=== PATIENT | male | born 1960 | race Caucasian/White ===

== ENCOUNTER 2017-06-10 16:53 | Emergency (ER) | payer OTHER ==
[~2017-06-10 16:53] MED LIST: Iopamidol 370 76% 100 ML VIAL ONE
[2017-06-10] MEDS ORDERED: Lidocaine Viscous Sol 2% 15 ml UD Cup ONE (17:53)
[2017-06-10 19:12] LABS: #Eosinphils 0.4 thou/uL (0.0-0.7); #Lymphocytes 2.2 thou/uL (1.20-3.40); #Monocytes 1.3 thou/uL (0.11-0.59); %Basophils 0.1 % (0.0-1.0); %Lymphocytes 18.7 % (21.0-51.0); %Monocytes 11.1 % (0.0-10.0); %Neutrophils 67.1 % (42.0-75.0); Hemoglobin 14.7 g/dL (14.0-18.0); Mean Corpuscular HGB CONC 33.1 g/dL (32.0-36.0); Mean Corpuscular Hemoglobin 28.4 pg (27.0-31.0); Mean Corpuscular Volume 85.9 fl (80.0-94.0); Mean Platelet Volume 8.4 fL (7.4-10.4); Platelet Count 222 thou/uL (130-400); RBC Distribution Width 12.6 % (11.5-14.5); Red Blood Cell (RBC) Count 5.16 mill/uL (4.70-6.10)
--- NOTE | 2017-06-10 19:13 | CT ---
CT OF THE ABDOMEN AND PELVIS WITH IV CONTRAST: 06/10/17 INDICATION: Severe rectal pain. FINDINGS: There is some subsegmental atelectasis involving both lower lobes. There is a tiny hypodensity within the medial left hepatic lobe measuring 8 mm. It is difficult to ch aracterize due to its size. There is mild fatty infiltration of the liver. The pancreas is unremarkab le. There is a 2.7 cm nodule involving the left adrenal gland. There is a small hypodensity measuring 1.6 cm that cannot be definitively characterized on the current exam involving the right mid kidney. There is a 2.7 cm hypodense mass seen posterior to the rectum with mild peripheral enhancement suspic ious for a perirectal abscess. The unopacified small and large bowel appear within normal limits. There is a normal appendix in the right lower quadrant of the abdomen. There are multiple phleboliths within the lower pelvis. No definite acute osseous abnormality is evident. IMPRESSION: 1. Hypodense peripherally enhancing collection seen posterior to the rectum suspicious for a per irectal abscess. Recommend GI consultation. 2. Left adrenal nodule incompletely characterized on the current exam. Followup CT of the abdome n utilizing adrenal mass protocol is recommended. 3. Left hepatic lobe and right renal hypodensity is difficult to characterize. These could be ch aracterized potentially better on the recommended CT of the abdomen with and without contrast as abov e. 4. Fat containing umbilical hernia. 5. Mild fatty infiltration of the liver. POS: [facility]
[2017-06-10 19:32] LABS: ALT (SGPT) 27 U/L (8-55); AST (SGOT) 16 U/L (5-34); Albumin 3.9 g/dL (3.5-5.0); Alkaline Phosphatase 95 U/L (40-150); Anion Gap 9 mmol/L (10-20); BUN (Urea Nitrogen) 16 mg/dL (8.4-25.7); Bilirubin, Total 0.2 mg/dL (0.2-1.2); CRP (Inflammatory) 6.27 mg/dL (= or < 0.5); Calc. Creatinine Clearance 0 mL/min (70-130); Calcium 9.1 mg/dL (7.8-10.44); Carbon Dioxide 25 mmol/L (22-29); Chloride 104 mmol/L (98-107); Estimated GFR-MDRD Greater than 90; Globulin 2.9 g/dL (2.4-3.5); Glucose 116 mg/dL (70-105); Protein, Total 6.8 g/dL (6.0-8.3); Sodium 134 mmol/L (136-145)
[2017-06-10] MEDS ORDERED: Ondansetron HCl/PF 4 MG/2 ML Vial ONE (20:45)
[2017-06-10] MEDS ORDERED: Morphine 4 MG/ML VIAL ONE (20:45)
[2017-06-10] MEDS ORDERED: Clindamycin/D5W 600 mg/50 ml Premix Bag ONE (22:09)
== END 2017-06-10 23:51 | disposition home or self-care (01) ==
LOC: ERS 16:53
DX: K61.1 Rectal abscess (principal); I10 Essential (primary) hypertension; F17.210 Nicotine dependence, cigarettes, uncomplicated
CPT/HCPCS: 36415; 45005; 74177; 80053; 85025; 85652; 86140; 87070; 87205; J2270; J2405; J3490

== ENCOUNTER 2019-10-05 07:22 | Emergency (ER) | payer SELFPAY ==
[2019-10-05] MEDS ORDERED: Clopidogrel Bisulfate 300 MG TAB ONE (07:40)
--- NOTE | 2019-10-05 07:48 | RAD ---
EXAM: Single view of the chest HISTORY: Chest pain COMPARISON: None FINDINGS: Single view of the chest shows a normal sized cardiomediastinal silhouette. There is no boris dence of consolidation, mass, or pleural effusion. The bones are unremarkable IMPRESSION: No evidence of acute cardiopulmonary disease
[2019-10-05 08:27] LABS: #Basophils 0.1 thou/uL (0.0-0.2); #Eosinphils 0.4 thou/uL (0.0-0.7); #Lymphocytes 2.8 thou/uL (1.20-3.40); #Monocytes 0.6 thou/uL (0.11-0.59); #Neutrophils 4.2 thou/uL (1.40-6.50); %Eosinophils 5.3 % (0.0-10.0); %Lymphocytes 34.7 % (21.0-51.0); %Monocytes 7.5 % (0.0-10.0); %Neutrophils 51.5 % (42.0-75.0); Hemoglobin 16.4 g/dL (14.0-18.0); Mean Corpuscular Hemoglobin 27.9 pg (27.0-31.0); Mean Corpuscular Volume 87.1 fL (78.0-98.0); Mean Platelet Volume 10.3 fL (7.4-10.4); Platelet Count 212 thou/uL (130-400); RBC Distribution Width 12.5 % (11.5-14.5); Red Blood Cell (RBC) Count 5.88 mill/uL (4.70-6.10); White Blood Cell (WBC) Count 8.1 thou/uL (4.8-10.8)
[2019-10-05 08:51] LABS: ALT (SGPT) 26 U/L (8-55); AST (SGOT) 21 U/L (5-34); Albumin 4.1 g/dL (3.5-5.0); Alkaline Phosphatase 101 U/L (40-110); Anion Gap 18 mmol/L (10-20); BUN (Urea Nitrogen) 8 mg/dL (8.4-25.7); Bilirubin, Total 0.5 mg/dL (0.2-1.2); Calc. Creatinine Clearance 0 mL/min (70-130); Carbon Dioxide 21 mmol/L (22-29); Chloride 103 mmol/L (98-107); Estimated GFR-MDRD Greater than 90; Globulin 2.9 g/dL (2.4-3.5); Glucose 107 mg/dL (70-105); Potassium 3.7 mmol/L (3.5-5.1); Sodium 138 mmol/L (136-145)
== END 2019-10-05 09:15 | disposition home or self-care (01) ==
LOC: ERS 07:22
DX: R07.89 Other chest pain (principal); R20.8 Other disturbances of skin sensation; F17.210 Nicotine dependence, cigarettes, uncomplicated; I10 Essential (primary) hypertension
CPT/HCPCS: 71045; 80053; 83880; 84484; 85025; 93005

== ENCOUNTER 2022-03-28 20:06 | Inpatient (IN) | payer OTHER ==
[~2022-03-28 20:06] MED LIST changes: -Iopamidol 370 76% 100 ML VIAL ONE; +Iopamidol-370 76% 500 ML 1 ML ONE
[2022-03-28 20:41] LABS: #Eosinphils 0.4 thou/uL (0.0-0.7); #Lymphocytes 2.4 thou/uL (1.20-3.40); #Monocytes 0.7 thou/uL (0.11-0.59); #Neutrophils 5.9 thou/uL (1.40-6.50); %Basophils 0.3 % (0.0-1.0); %Eosinophils 4.2 % (0.0-10.0); %Lymphocytes 25.4 % (21.0-51.0); %Monocytes 7.3 % (0.0-10.0); %Neutrophils 62.8 % (42.0-75.0); Hemoglobin 15.9 g/dL (14.0-18.0); Mean Corpuscular HGB CONC 33.6 g/dL (32.0-36.0); Mean Corpuscular Hemoglobin 28.8 pg (27.0-31.0); Mean Corpuscular Volume 85.7 fl (78.0-98.0); Mean Platelet Volume 9.8 fL (7.4-10.4); Platelet Count 189 10x3/uL (130-400); RBC Distribution Width 12.3 % (11.5-14.5); White Blood Cell (WBC) Count 9.4 10x3/uL (4.8-10.8)
[2022-03-28 21:01] LABS: ALT (SGPT) 36 U/L (8-55); AST (SGOT) 41 U/L (5-34); Albumin 3.9 g/dL (3.4-4.8); Alkaline Phosphatase 82 U/L (40-110); Anion Gap 11 mmol/L (10-20); BUN (Urea Nitrogen) 15 mg/dL (8.4-25.7); Bilirubin, Total 0.3 mg/dL (0.2-1.2); Calc. Creatinine Clearance 0 mL/min (70-130); Calcium 8.8 mg/dL (7.8-10.44); Carbon Dioxide 21 mmol/L (23-31); Chloride 104 mmol/L (98-107); Estimated GFR 91; Globulin 2.7 g/dL (2.4-3.5); Potassium 4.3 mmol/L (3.5-5.1); Protein, Total 6.6 g/dL (5.8-8.1); Sodium 132 mmol/L (136-145)
[2022-03-28 21:18] LABS: Glucose 427 mg/dL (80-115)
[2022-03-28] MEDS ORDERED: Morphine 4 MG/ML VIAL ONE (22:13)
[2022-03-28] MEDS ORDERED: Ketorolac Tromethamine 30 MG/ML VIAL ONE (23:44)
[2022-03-29] MEDS ORDERED: Morphine 4 MG/ML VIAL ONE (02:10)
[2022-03-29] MEDS ORDERED: Ondansetron PF 4 MG/2 ML Vial ONE (02:12)
[2022-03-29] MEDS ORDERED: Morphine 4 MG/ML VIAL SLOW IVP PRN ×2 (02:16→07:42)
[2022-03-29] MEDS ORDERED: Acetaminophen 325 MG TAB PO PRN (02:30)
[2022-03-29] MEDS ORDERED: Sodium Chloride 0.9% 1,000 ML IV SCH ×2 (02:30→03:01)
[2022-03-29] MEDS ORDERED: Ondansetron PF 4 MG/2 ML Vial IVP PRN ×2 (02:30→03:02)
[2022-03-29] MEDS ORDERED: Ondansetron ODT 4 MG TAB SL PRN (02:30)
[2022-03-29] MEDS ORDERED: Dextrose 50% Abboject 50 ML SYRINGE SLOW IVP PRN (03:02)
[2022-03-29] MEDS ORDERED: Ipratropium/Albuterol 3 ML NEB NEB PRN (03:02)
[2022-03-29] MEDS ORDERED: Ondansetron ODT 4 MG TAB PO PRN (03:02)
[2022-03-29] MEDS ORDERED: Dextrose 5% in Water 1,000 ML IV PRN (03:02)
[2022-03-29] MEDS ORDERED: hydrALAZINE 20 MG/ML VIAL SLOW IVP PRN (03:02)
[2022-03-29] MEDS ORDERED: Insulin Regular 300 UNITS/3 ML VIAL SC PRN ×2 (03:04)
[2022-03-29] MEDS ORDERED: Cyclobenzaprine 10 MG TAB PO PRN (03:05)
[2022-03-29] MEDS ORDERED: Acetaminophen 500 MG TAB ONE (03:36)
[2022-03-29] MEDS ORDERED: traMADol HCl 50 MG TAB ONE ×2 (03:36)
[2022-03-29 04:44] VITALS: BMI 33.6
[2022-03-29] MEDS: traMADol HCl 50 MG TAB PO SCH ×2 (05:02→12:11)
[2022-03-29] MEDS: Acetaminophen 500 MG TAB PO SCH ×2 (05:02→12:11)
[2022-03-29 05:55] LABS: #Eosinphils 0.3 thou/uL (0.0-0.7); #Lymphocytes 2.2 thou/uL (1.20-3.40); #Monocytes 0.8 thou/uL (0.11-0.59); #Neutrophils 5.6 thou/uL (1.40-6.50); %Basophils 0.5 % (0.0-1.0); %Lymphocytes 24.9 % (21.0-51.0); %Neutrophils 62.6 % (42.0-75.0); Hemoglobin 14.7 g/dL (14.0-18.0); Mean Corpuscular HGB CONC 33.1 g/dL (32.0-36.0); Mean Corpuscular Volume 87.6 fl (78.0-98.0); Mean Platelet Volume 9.5 fL (7.4-10.4); Platelet Count 177 10x3/uL (130-400); RBC Distribution Width 12.3 % (11.5-14.5); Red Blood Cell (RBC) Count 5.07 mill/uL (4.70-6.10); White Blood Cell (WBC) Count 8.9 10x3/uL (4.8-10.8)
[2022-03-29] MEDS ORDERED: Gabapentin 300 MG CAP PO SCH (06:00)
[2022-03-29] MEDS ORDERED: Ketorolac Tromethamine 30 MG/ML VIAL IVP SCH ×2 (06:00→12:00)
[2022-03-29 06:08] LABS: Hemoglobin A1c 10.4 % (4.0-6.0)
[2022-03-29 06:18] LABS: Anion Gap 12 mmol/L (10-20); BUN (Urea Nitrogen) 12 mg/dL (8.4-25.7); Calc. Creatinine Clearance 169 mL/min (70-130); Calcium 8.4 mg/dL (7.8-10.44); Carbon Dioxide 22 mmol/L (23-31); Chloride 105 mmol/L (98-107); Estimated GFR 104; Glucose 247 mg/dL (80-115); Potassium 3.8 mmol/L (3.5-5.1); Sodium 135 mmol/L (136-145)
[2022-03-29] MEDS: Ipratropium/Albuterol 3 ML NEB NEB SCH ×2 (06:49→13:11)
[2022-03-29 06:51] LABS: SARS-CoV-2 NAA Rapid Test Not Detected (NotDetected)
[2022-03-29] MEDS ORDERED: Ibuprofen 800 MG TAB PO PRN (08:47)
[2022-03-29] MEDS ORDERED: Ibuprofen 200 MG TAB PO PRN (09:00)
[2022-03-29] MEDS ORDERED: Famotidine 20 MG TAB PO SCH (09:00)
[2022-03-29] MEDS ORDERED: Senokot S 8.6-50 MG TAB PO SCH (09:00)
[2022-03-29] MEDS ORDERED: Polyethylene Glycol 3350 17 GM Packet PO SCH (09:00)
[2022-03-29 12:20] VITALS: BP 132/85; TEMP 97.6
[2022-03-29] MEDS ORDERED: metFORMIN 500 MG TAB PO SCH (17:00)
== END 2022-03-29 15:42 | disposition home or self-care (01) | DRG 184 ==
LOC: ERS 20:06 → SURG A 03-29 02:07
PROVIDERS: ADMIT Specialist; ATTEND Surgery
DX: S22.42XA Multiple fractures of ribs, left side, initial encounter for closed fracture (principal); S22.20XA Unspecified fracture of sternum, initial encounter for closed fracture; I10 Essential (primary) hypertension; F17.210 Nicotine dependence, cigarettes, uncomplicated; E11.65 Type 2 diabetes mellitus with hyperglycemia; Z88.6 Allergy status to analgesic agent; V49.50XA Passenger injured in collision with unspecified motor vehicles in traffic accident, initial encounter; Z90.49 Acquired absence of other specified parts of digestive tract
CPT/HCPCS: 36415; 36416; 70450; 71045; 71250; 72125; 74177; 80048; 80053; 83036; 83735; 85025; 86850; 86900; 86901; 93005; 94640; 96374; 96375; 96376; G0390; J1885; J2270; J2405; J7050; J7620; Q9967; U0002

== ENCOUNTER 2022-03-30 06:39 | Inpatient (IN) | payer OTHER, SELFPAY ==
[2022-03-30] MEDS ORDERED: Dexameth. Sod Phosp. 10 MG/ML (CHEMO USE ONLY) ONE (08:18)
[2022-03-30 08:19] LABS: #Eosinphils 0.3 thou/uL (0.0-0.7); #Lymphocytes 1.3 thou/uL (1.20-3.40); #Monocytes 0.7 thou/uL (0.11-0.59); #Neutrophils 5.9 thou/uL (1.40-6.50); %Basophils 0.3 % (0.0-1.0); %Eosinophils 3.2 % (0.0-10.0); %Lymphocytes 15.7 % (21.0-51.0); %Monocytes 8.7 % (0.0-10.0); %Neutrophils 72.2 % (42.0-75.0); Hemoglobin 14.9 g/dL (14.0-18.0); Mean Corpuscular HGB CONC 32.4 g/dL (32.0-36.0); Mean Corpuscular Hemoglobin 28.4 pg (27.0-31.0); Mean Corpuscular Volume 87.8 fl (78.0-98.0); Mean Platelet Volume 9.3 fL (7.4-10.4); Platelet Count 164 10x3/uL (130-400); RBC Distribution Width 12.4 % (11.5-14.5); Red Blood Cell (RBC) Count 5.25 mill/uL (4.70-6.10); White Blood Cell (WBC) Count 8.2 10x3/uL (4.8-10.8)
[2022-03-30] MEDS ORDERED: cefTRIAXone\\ROCEPHIN 2 GM VIAL ONE (08:29)
[2022-03-30 08:34] LABS: ALT (SGPT) 28 U/L (8-55); AST (SGOT) 18 U/L (5-34); Albumin 3.8 g/dL (3.4-4.8); Alkaline Phosphatase 73 U/L (40-110); Anion Gap 11 mmol/L (10-20); BUN (Urea Nitrogen) 12 mg/dL (8.4-25.7); Bilirubin, Total 0.8 mg/dL (0.2-1.2); Calc. Creatinine Clearance 0 mL/min (70-130); Calcium 8.6 mg/dL (7.8-10.44); Carbon Dioxide 24 mmol/L (23-31); Chloride 100 mmol/L (98-107); Estimated GFR 105; Globulin 2.7 g/dL (2.4-3.5); Glucose 219 mg/dL (80-115); Potassium 4.1 mmol/L (3.5-5.1); Protein, Total 6.5 g/dL (5.8-8.1); Sodium 131 mmol/L (136-145)
[2022-03-30] MEDS ORDERED: Famotidine/PF 20 mg/2ml Vial ONE (10:36)
[2022-03-30] MEDS ORDERED: diphenhydrAMINE 50 MG/ML VIAL ONE (10:37)
[2022-03-30] MEDS ORDERED: Ondansetron PF 4 MG/2 ML Vial IVP PRN (10:47)
[2022-03-30] MEDS ORDERED: Dextrose 5% in Water 1,000 ML IV PRN (10:56)
[2022-03-30] MEDS ORDERED: Dextrose 50% Abboject 50 ML SYRINGE SLOW IVP PRN (10:56)
[2022-03-30] MEDS ORDERED: HumaLOG 300 UNITS/3 ML VIAL SC PRN (10:56)
[2022-03-30] MEDS ORDERED: Senokot S 8.6-50 MG TAB PO PRN (10:56)
[2022-03-30] MEDS ORDERED: Iopamidol-370 76% 500 ML 1 ML ONE (12:50)
[2022-03-30] MEDS ORDERED: Ketorolac Tromethamine 30 MG/ML VIAL ONE (14:57)
[2022-03-30] MEDS: Ketorolac Tromethamine 30 MG/ML VIAL IVP SCH ×3 (15:05→20:05)
[2022-03-30] MEDS: Sodium Chloride 0.9% 1,000 ML IV SCH ×2 (15:05→20:04)
[2022-03-30] MEDS: Gabapentin 300 MG CAP PO SCH ×2 (15:07→20:05)
[2022-03-30 15:17] LABS: SARS-CoV-2 NAA Rapid Test Not Detected (NotDetected)
[2022-03-30] MEDS: Ampicillin/Sulbactam 1.5 GM in Sodium Chloride 0.9% 100 ML IVPB SCH ×2 (15:33→20:18)
[2022-03-30] MEDS ORDERED: Insulin Regular 300 UNITS/3 ML VIAL ONE (17:26)
[2022-03-30] MEDS ORDERED: HumaLOG 300 UNITS/3 ML VIAL ONE (17:29)
[2022-03-30 18:23] VITALS: BMI 46.3
[2022-03-30] MEDS: traMADol HCl 50 MG TAB PO PRN (20:06)
[2022-03-31] MEDS: Ampicillin/Sulbactam 1.5 GM in Sodium Chloride 0.9% 100 ML IVPB SCH ×4 (00:46→20:40)
[2022-03-31] MEDS: Ketorolac Tromethamine 30 MG/ML VIAL IVP SCH ×2 (03:15→09:11)
[2022-03-31] MEDS: Gabapentin 300 MG CAP PO SCH ×3 (05:38→20:28)
[2022-03-31 08:21] LABS: #Eosinphils 0.2 thou/uL (0.0-0.7); #Lymphocytes 2.3 thou/uL (1.20-3.40); #Monocytes 0.7 thou/uL (0.11-0.59); %Basophils 0.3 % (0.0-1.0); %Eosinophils 2.6 % (0.0-10.0); %Lymphocytes 27.6 % (21.0-51.0); %Monocytes 8.4 % (0.0-10.0); %Neutrophils 61.1 % (42.0-75.0); Hemoglobin 14.3 g/dL (14.0-18.0); Mean Corpuscular Hemoglobin 28.6 pg (27.0-31.0); Mean Corpuscular Volume 86.8 fl (78.0-98.0); Mean Platelet Volume 9.7 fL (7.4-10.4); Platelet Count 176 10x3/uL (130-400); RBC Distribution Width 12.3 % (11.5-14.5); Red Blood Cell (RBC) Count 4.98 mill/uL (4.70-6.10); White Blood Cell (WBC) Count 8.2 10x3/uL (4.8-10.8)
[2022-03-31 08:43] LABS: Anion Gap 12 mmol/L (10-20); BUN (Urea Nitrogen) 16 mg/dL (8.4-25.7); Calc. Creatinine Clearance 182 mL/min (70-130); Calcium 8.3 mg/dL (7.8-10.44); Carbon Dioxide 21 mmol/L (23-31); Chloride 104 mmol/L (98-107); Estimated GFR 106; Glucose 218 mg/dL (80-115); Sodium 133 mmol/L (136-145)
[2022-03-31] MEDS: Cyclobenzaprine 10 MG TAB PO PRN ×3 (09:09→20:28)
[2022-03-31] MEDS: traMADol HCl 50 MG TAB PO PRN ×2 (11:11→20:29)
[2022-03-31] MEDS ORDERED: Guaifenesin DM 100-10/5 ML UDCUP PO PRN (11:15)
[2022-03-31] MEDS ORDERED: Polyethylene Glycol 3350 17 GM Packet PO PRN (11:15)
[2022-03-31] MEDS: Ketorolac Tromethamine 30 MG/ML VIAL IVP PRN (14:27)
[2022-03-31 15:30] LABS: Troponin I Less than 0.010 ng/mL (< 0.028)
[2022-03-31] MEDS ORDERED: Morphine 2 MG/ML VIAL SLOW IVP SCH (16:45)
[2022-04-01] MEDS: Ampicillin/Sulbactam 1.5 GM in Sodium Chloride 0.9% 100 ML IVPB SCH ×3 (01:53→14:47)
[2022-04-01] MEDS: Ketorolac Tromethamine 30 MG/ML VIAL IVP PRN ×3 (01:54→14:02)
[2022-04-01] MEDS: Gabapentin 300 MG CAP PO SCH ×2 (05:32→14:01)
[2022-04-01] MEDS: traMADol HCl 50 MG TAB PO PRN ×2 (05:32→11:03)
[2022-04-01] MEDS: Cyclobenzaprine 10 MG TAB PO PRN ×2 (08:39→14:01)
[2022-04-01 09:07] LABS: #Eosinphils 0.3 thou/uL (0.0-0.7); #Lymphocytes 1.5 thou/uL (1.20-3.40); #Monocytes 0.8 thou/uL (0.11-0.59); %Basophils 0.3 % (0.0-1.0); %Eosinophils 3.5 % (0.0-10.0); %Lymphocytes 19.6 % (21.0-51.0); %Monocytes 10.9 % (0.0-10.0); %Neutrophils 65.7 % (42.0-75.0); Hemoglobin 14.8 g/dL (14.0-18.0); Mean Corpuscular HGB CONC 33.3 g/dL (32.0-36.0); Mean Corpuscular Hemoglobin 28.9 pg (27.0-31.0); Mean Corpuscular Volume 86.8 fl (78.0-98.0); Mean Platelet Volume 9.7 fL (7.4-10.4); Platelet Count 177 10x3/uL (130-400); RBC Distribution Width 12.3 % (11.5-14.5); Red Blood Cell (RBC) Count 5.12 mill/uL (4.70-6.10); White Blood Cell (WBC) Count 7.7 10x3/uL (4.8-10.8)
[2022-04-01 09:26] LABS: Anion Gap 12 mmol/L (10-20); BUN (Urea Nitrogen) 14 mg/dL (8.4-25.7); Calc. Creatinine Clearance 182 mL/min (70-130); Calcium 8.5 mg/dL (7.8-10.44); Carbon Dioxide 23 mmol/L (23-31); Chloride 101 mmol/L (98-107); Estimated GFR 106; Glucose 190 mg/dL (80-115); Potassium 4.1 mmol/L (3.5-5.1); Sodium 132 mmol/L (136-145)
[2022-04-01 17:18] VITALS: BP 151/88; TEMP 99
== END 2022-04-01 17:39 | disposition home or self-care (01) | DRG 153 ==
LOC: ERS 06:39 → ERHOLD 10:49 → T4-A 18:02 → OBSVTOIN 04-01 10:14
PROVIDERS: ADMIT Internal Medicine; ATTEND Internal Medicine
DX: J02.9 Acute pharyngitis, unspecified (principal); K12.2 Cellulitis and abscess of mouth; E87.1 Hypo-osmolality and hyponatremia; Z68.42 Body mass index [BMI] 45.0-49.9, adult; I10 Essential (primary) hypertension; R13.10 Dysphagia, unspecified; I25.10 Atherosclerotic heart disease of native coronary artery without angina pectoris; E66.9 Obesity, unspecified; E11.9 Type 2 diabetes mellitus without complications; F17.210 Nicotine dependence, cigarettes, uncomplicated; S22.32XD Fracture of one rib, left side, subsequent encounter for fracture with routine healing; S22.20XD Unspecified fracture of sternum, subsequent encounter for fracture with routine healing; Z88.8 Allergy status to other drugs, medicaments and biological substances; Z79.899 Other long term (current) drug therapy; Z79.84 Long term (current) use of oral hypoglycemic drugs; Z98.890 Other specified postprocedural states; Z90.49 Acquired absence of other specified parts of digestive tract
CPT/HCPCS: 36415; 36416; 70491; 71045; 80048; 80053; 84484; 85025; 93005; 93010; J0295; J0696; J1100; J1200; J1815; J1885; J2272; J3490; J7050; Q9967; S0028; U0002